=== PATIENT | female | born 1985 | race American Indian/Alaskan Native ===

== ENCOUNTER 2016-05-28 10:40 | Outpatient (CLI) | payer MEDICAID ==
[2016-05-28] MEDS ORDERED: LACTATED RINGERS 500 ML IV ONE (11:17)
[2016-05-28 11:34] VITALS: BP 109/55
[2016-05-28] MEDS ORDERED: LACTATED RINGERS 1,000 ML ONE (12:10)
[2016-05-28] MEDS ORDERED: ZOFRAN IV ONE (13:13)
== END 2016-05-28 14:16 | disposition home or self-care (01) ==
LOC: TRG 10:40
PROVIDERS: ATTEND Obstetrics & Gynecology
DX: O47.03 False labor before 37 completed weeks of gestation, third trimester (principal); Z3A.36 36 weeks gestation of pregnancy
CPT/HCPCS: 59025; 96360; 96374; J2405; J7120

== ENCOUNTER 2016-06-09 14:05 | Inpatient (IN) | payer MEDICAID ==
[2016-06-09] MEDS ORDERED: NORCO 5/325 PO PRN (14:17)
[2016-06-09] MEDS ORDERED: COLACE PO PRN (16:55)
[2016-06-09] MEDS ORDERED: ALUM-MAG HYDROX-SIMETH 200-200-20MG/5ML PO PRN (16:55)
[2016-06-09] MEDS ORDERED: TYLENOL PO PRN (16:55)
[2016-06-09] MEDS ORDERED: SUBLIMAZE IV PRN (16:58)
--- NOTE | 2016-06-09 17:29 | History and Physical Report ---
History of Present Illness Date of examination: 06/09/16 Chief complaint: Presented to office today with c/o pain in right flank over the last few days but increasingly worse. Past History Past Medical History: asthma, other (Hx of Dilated Right Renal Hilum ) Past Surgical History: other (ear surgery - keloid removal) [employer] History: abnormal PAP smear (+ HPV) Family/Genetic History: hypertension, stroke Social history: no significant social history - Obstetrical History Expected Date of Delivery: 06/25/16 Actual Gestation: 37 Week(s) 5 Day(s) : 5 Para: 4 Hx # Term Pregnancies: 2 Number of Pregnancies: 2 Number of Living Children: 4 Medications and Allergies Allergies Allergy/AdvReac Type Severity Reaction Status Date / Time Penicillins Allergy Vomiting Verified 02/26/14 01:13 Home Medications Medication Instructions Recorded Confirmed Last Taken Type Benzonatate [Tessalon Perle] 100 mg PO TID #30 capsule 02/26/14 Unknown Rx Naproxen [Naprosyn TAB] 500 mg PO BID #30 tablet 02/26/14 Unknown Rx Prednisone [Prednisone 10 mg 10 mg PO .TAPER #1 tab.ds.pk 02/26/14 Unknown Rx (6-Day Pack, 21 Tabs)] Promethazine /Codeine 5 ml PO Q6H PRN #1 udc 02/26/14 Unknown Rx [Phenergan/Codeine 6.25-10 mg/5 ml] Acetaminophen [Tylenol] 500 mg PO Q6HR #30 tablet 03/21/16 Unknown Rx Active Meds: Active Medications Acetaminophen (Tylenol) 650 mg PO Q4H PRN PRN Reason: Pain MILD(1-3)/Fever >100.5/SANCHEZ Acetaminophen/Hydrocodone Bitart ([place] 5/325) 2 each PO Q4H PRN PRN Reason: Pain, Moderate (4-6) Al Hydrox/Mg Hydrox/Simethicone (Alum-Mag Hydrox-Simeth [phone]/5ml) 30 ml PO Q6H PRN PRN Reason: Indigestion Docusate Sodium (Colace) 100 mg PO Q12H PRN PRN Reason: Constipation Fentanyl (Sublimaze) 100 mcg IV ONCE PRN PRN Reason: Pain Lactated Ringer's (Lactated Ringers) 1,000 mls @ 125 mls/hr IV DIRECT PRANAV Multivitamins/Iron/Calcium ( Vitamin) 1 each PO QDAY PRANAV Review of Systems Genitourinary: other (right flank pain) - Vital Signs Vital signs: Vital Signs Pulse BP 83 105/67 06/09/16 15:01 06/09/16 15:01 Temp Pulse Resp BP Pulse Ox 83 105/67 06/09/16 15:01 06/09/16 15:01 - Physical Exam Breasts: Positive: deferred Cardiovascular: Regular rate Lungs: Positive: Clear to auscultation Abdomen: Positive: soft Genitourinary (Female): Positive: other (flank pain) Vulva: both: normal Uterus: Positive: enlarged Anus/Rectum: Positive: normal perianal skin Extremities: Positive: normal Deep Tendon Reflex Grade: Normal +2 - Obstetrical FHR: category 1 Uterine Contraction Monitor Mode: External Cervical Dilatation: 2 Cervical Effacement Percentage: 70 station: -1 Uterine Contraction Pattern: Irregular Uterine Contraction Intensity: Mild Results All other labs normal. Assessment and Plan A: 37 + weeks gestation Acute Right flank pain P: Urine culture, CBC, CMP Abdominal U/S Urology consult. Dr. Simms aware
[2016-06-09] MEDS: LACTATED RINGERS 1,000 ML IV SCH ×2 (17:31→19:19)
[2016-06-09 18:17] LABS: Basophils % (Auto) 0.2 % (0.0-1.8); Eosinophils % (Auto) 1.8 % (0.0-4.3); Mean Corpuscular HGB Conc 32 % (30-34); Mean Corpuscular Hemoglobin 30 pg (28-32); Mean Corpuscular Volume 91 fl (79-97); Platelet Count 220 K/mm3 (140-440); Red Blood Count 3.72 M/mm3 (3.65-5.03); Red Cell Distribution Width 13.4 % (13.2-15.2); White Blood Count 10.8 K/mm3 (4.5-11.0)
[2016-06-09 18:34] LABS: Alanine Aminotransferase 20 units/L (7-56); Albumin 3.6 g/dL (3.9-5); Albumin/Globulin Ratio 1.3 %; Alkaline Phosphatase 161 units/L (35-129); Anion Gap 17 mmol/L; Bilirubin,Total 0.2 mg/dL (0.1-1.2); Blood Urea Nitrogen 7 mg/dL (7-17); Calcium 8.8 mg/dL (8.4-10.2); Carbon Dioxide 23 mmol/L (22-30); Glucose 75 mg/dL (65-100); Sodium 136 mmol/L (137-145); Total Protein 6.4 g/dL (6.3-8.2)
[2016-06-09] MEDS: SUBLIMAZE IV PRN (20:24)
--- NOTE | 2016-06-10 00:49 | Ultrasound Report ---
FINAL REPORT PROCEDURE: US RENAL BILAT TECHNIQUE: Real-time sonography in multiple planes of the kidneys, ureters and urinary bladder was performed with image documentation. CPT 96945 HISTORY: extreme right flank pain COMPARISON: No prior studies are available for comparison. FINDINGS: RIGHT kidney: There is significant right hydronephrosis with dilated proximal right ureter. The right renal size is increased. Length: 15.1 cm. LEFT kidney: Normal echotexture. No focal renal mass, calculus, or hydronephrosis. Length: 10.4cm. Bladder: Normal. IMPRESSION: Enlarged right kidney with significant right hydronephrosis and proximal right hydroureter. Further evaluation of the right kidney and collecting system should be entertained this patient. Further imaging could include CT of the abdomen with and without contrast..
[2016-06-10] MEDS: SUBLIMAZE IV PRN ×3 (01:58→09:40)
[2016-06-10] MEDS: LACTATED RINGERS 1,000 ML IV SCH ×2 (03:10→11:09)
--- NOTE | 2016-06-10 07:28 | Progress Note ---
Assessment and Plan A: IUP at 37+6 wks with R hydronephrpsis -Cat 1 tracing P: -Continue nothing by mouth status -Await Urology consultation - Patient Problems (1) 37 weeks gestation of Current Visit: Yes Status: Acute (2) Hydronephrosis determined by ultrasound Current Visit: Yes Status: Acute Subjective - Subjective Date of service: 06/10/16 Principal diagnosis: IUP at 37+6 wks, R hydronephrosis Interval history: Patient seen and examined, stable. She still has right flank pain requiring narcotic medication, no fever overnight. White count normal No contractions, no vaginal bleeding, no loss of fluid plus movement Patient reports: new complaints, movement normal, no loss of fluid, no vaginal bleeding, no contractions Objective - Vital Signs Vital Signs: Vital Signs - 12hr 06/09/16 06/09/16 06/09/16 20:00 20:02 20:24 Temperature 98.0 F Pulse Rate 80 Respiratory 16 16 Rate Blood Pressure 114/72 O2 Sat by Pulse Oximetry 06/09/16 06/09/16 06/09/16 21:10 21:14 21:18 Temperature Pulse Rate 91 H 73 79 Respiratory Rate Blood Pressure O2 Sat by Pulse 98 97 91 Oximetry 06/09/16 06/09/16 06/09/16 21:20 21:30 21:35 Temperature Pulse Rate 83 89 63 Respiratory Rate Blood Pressure O2 Sat by Pulse 100 99 98 Oximetry 06/09/16 06/09/16 06/09/16 21:40 21:44 21:50 Temperature Pulse Rate 80 86 77 Respiratory Rate Blood Pressure O2 Sat by Pulse 100 98 98 Oximetry 06/09/16 06/09/16 06/09/16 21:55 22:00 22:05 Temperature Pulse Rate 69 75 73 Respiratory Rate Blood Pressure O2 Sat by Pulse 98 99 98 Oximetry 06/09/16 06/09/16 06/09/16 22:10 22:15 22:20 Temperature Pulse Rate 75 86 62 Respiratory Rate Blood Pressure O2 Sat by Pulse 98 99 98 Oximetry 06/09/16 06/09/16 06/09/16 22:25 22:30 23:47 Temperature Pulse Rate 67 73 72 Respiratory Rate Blood Pressure 101/56 O2 Sat by Pulse 98 100 98 Oximetry 03/21/17 03/21/17 03/21/17 23:52 23:54 23:57 Temperature 97.8 F Pulse Rate 65 79 Respiratory 16 Rate Blood Pressure O2 Sat by Pulse 97 97 Oximetry 06/10/16 06/10/16 06/10/16 00:02 00:07 00:12 Temperature Pulse Rate 83 71 79 Respiratory Rate Blood Pressure O2 Sat by Pulse 98 98 98 Oximetry 06/10/16 06/10/16 06/10/16 00:17 00:22 00:27 Temperature Pulse Rate 84 72 83 Respiratory Rate Blood Pressure O2 Sat by Pulse 99 98 98 Oximetry 06/10/16 06/10/16 06/10/16 00:32 00:37 00:42 Temperature Pulse Rate 74 71 79 Respiratory Rate Blood Pressure O2 Sat by Pulse 97 97 98 Oximetry 06/10/16 06/10/16 06/10/16 00:47 00:52 00:57 Temperature Pulse Rate 70 70 74 Respiratory Rate Blood Pressure O2 Sat by Pulse 98 97 97 Oximetry 06/10/16 06/10/16 06/10/16 01:02 01:07 04:53 Temperature Pulse Rate 68 83 82 Respiratory Rate Blood Pressure 104/55 O2 Sat by Pulse 97 98 Oximetry 06/10/16 06/10/16 05:07 07:00 Temperature 97.8 F Pulse Rate Respiratory 16 18 Rate Blood Pressure O2 Sat by Pulse Oximetry - Exam Abdomen: Present: tenderness (right flank tenderness). Absent: normal appearance, soft, distention, guarding, rigidity Uterus: Absent: tenderness FHR: category 1 - Labs Labs: Abnormal Labs 06/09/16 06/09/16 Unknown Unknown [place] % (Auto) 8.3 H [place] # 0.9 H Sodium 136 L Creatinine 0.5 L Alkaline Phosphatase 161 H Albumin 3.6 L Laboratory Results - last 24 hr 06/09/16 06/09/16 Unknown Unknown WBC 10.8 RBC 3.72 Hgb 11.0 Hct 34.0 MCV 91 MCH 30 MCHC 32 RDW 13.4 Plt Count 220 Lymph % (Auto) 20.9 [place] % (Auto) 8.3 H Eos % (Auto) 1.8 Baso % (Auto) 0.2 Lymph # 2.2 [place] # 0.9 H Eos # 0.2 Baso # 0.0 Seg Neutrophils % 68.8 Seg Neutrophils # 7.4 Sodium 136 L Potassium 4.0 Chloride 100.0 Carbon Dioxide 23 Anion Gap 17 BUN 7 Creatinine 0.5 L Estimated GFR > 60 BUN/Creatinine Ratio 14.00 Glucose 75 Calcium 8.8 Total Bilirubin 0.2 AST 21 ALT 20 Alkaline Phosphatase 161 H Total Protein 6.4 Albumin 3.6 L Albumin/Globulin Ratio 1.3
--- NOTE | 2016-06-10 07:39 | Admit Criteria Form ---
Admission Criteria Documentation: RENAL COLIC AND KIDNEY STONES Clinical Indications for Admission to Inpatient Care ( Place 'X' for any and all applicable criteria): Admission is indicated for ANY ONE of the following (1)(2)(3)(4): [X]I. Inpatient admission required rather than observation care (Also use Renal Colic and Kidney Stones: Observation Care Criteria as appropriate) because of ANY ONE of the following: [X]a) Severe pain requiring acute inpatient management [ ]b) Urinary tract infection identified [ ]c) Vomiting that is severe or persistent [ ]d) IV fluid required rather than oral rehydration to replace significant ongoing (eg, for greater than 24 hours) losses (greater than 200 mL/hr or 3 L/m2 per day) [ ]e) Percutaneous or open drainage (eg, abscess, biliary tract) procedures [ ]f) Other condition, treatment or monitoring requiring inpatient admission [ ]II. Impending acute renal failure [ ]III. Bilateral obstruction [X]IV. Single kidney with obstruction [ ]V. Transplanted kidney with obstruction [ ]. Possible open surgical procedure needed (eg, pyonephrosis, stone removal not amendable to other means) [ ]VII. Hemodynamic instability Extended stay beyond goal length of stay may be needed for(2)(3)(31): [ ]a) Failed initial stone removal (32) [ ]b) Pyonephrosis [ ]c) Obstructive uropathy with urinary tract infection [ ]d) Procedure complications [ ]e) Comorbidities (22) The original [facility] content created by [employer] has been revised. The portions of the content which have been revised are identified through the use of italic text or in bold, and [facility] has neither reviewed nor approved the modified material. All other unmodified content is copyright [facility]. Please see references footnoted in the original [facility] edition 2016 Admission Criteria Met: Yes
[2016-06-10 08:38] VITALS: BP 99/60
[2016-06-10] MEDS ORDERED: PRENATAL VITAMIN PO SCH (10:00)
[2016-06-10] MEDS ORDERED: MORPHINE IV PRN ×2 (10:01→10:05)
--- NOTE | 2016-06-10 12:00 | Event Note ---
Date: 06/10/[address] Mehta of urology who has seen the patient. Discussed and reviewed options with the patient. She was given 3 options #1 nephrostomy tube #2 stent platelets placement and #3 conservative care until delivery. Urology states there is a spot open for surgery this afternoon if she desires. Discussed issues related with all above. Advised she could be induced at 39 weeks if she can tolerate ~ 1 week w/out narcotic medication. If she desires surgical intervention, then she needs to decide as soon as possible so a slot can be possible for her for this afternoon in the OR. If patient does decide on conservative care, she'll be discharged home to follow-up in clinic and induction will be scheduled.
--- NOTE | 2016-06-10 12:20 | Discharge Summary ---
Providers - Providers Date of Admission: 06/10/16 11:22 Date of discharge: 06/10/16 Attending physician: GOSIA HOLMAN MD 06/09/16 17:06 Consult to Physician [CONS] Urgent Consulting Provider: KATYA GONSALVES Reason For Exam: 37 weeks with hx of dilated kidney, pain Place consult to:: [facility] Notified:: yes Phone number called:: [phone] Was contact made?: Yes If yes, spoke with:: OFFICE Time called:: 09:05 Comment:: SPOKE WITH OFFICE THAT IS IN SURGERY. WILL CONTACT HIM 06/10/16 07:29 Consult to Physician [CONS] Urgent Consulting Provider: FARHAD RANGEL Reason For Exam: R hydronephrosis at [address] consult to:: Yes Notified:: yes Primary care physician: GOSIA HOLMAN MD Hospitalization Discharge diagnosis: other (IUP at 37+6 wks with right hydronephrosis and Ureter ) Hospital course: 40-year-old at 37+5 was admitted from the office with complaint of right flank pain over the last few days but increasingly worse, she is a [employer] patient. Hx of Dilated Right Renal Hilum During admission, patient remained afebrile and her white count was within normal. Renal ultrasound obtained shows enlarged right kidney with significant right hydronephrosis and proximal right hydroureter. Further evaluation of the right kidney and collecting system should be entertained in this patient. Other imaging could Include CT of the abdomen abdomen with and without contrast She was seen by Dr. Schaffer of urology. Discussed and reviewed options with the patient. She was given 3 options #1 nephrostomy tube #2 stent placement or #3 conservative care until delivery. Urology informed the patient that there was a spot for surgery this afternoon if she desires. I discussed issues related with all above. Advised she could be induced at 39 weeks if she can tolerate ~ 1 week w/out narcotic medication. If she desires surgical intervention, then she needs to decide as soon as possible so a slot can be held open for her for this afternoon in the OR. After discussing with the father of the baby, patient has decided on conservative care. Discharge patient at this time should be scheduled for induction at 39 weeks Condition at discharge: Good Disposition: DISCHARGED TO HOME OR SELFCARE - Discharge Diagnoses (1) 37 weeks gestation of Status: Acute (2) Hydronephrosis determined by ultrasound Status: Acute Plan - Provider Discharge Summary Activity: no strenuous exercise Diet: routine Instructions: other (return to the hospital for induction at 39 weeks) Additional instructions: [] Smoking cessation referral if applicable(refer to patient education folder for contact #) [] Refer to [facility] Booklet Call your doctor immediately for: * Fever > 100.5 * Heavy vaginal bleeding ( >1 pad per hour) * Severe persistent headache * Shortness of breath * Reddened, hot, painful area to leg or breast * Drainage or odor from incision. * Keep incision clean and dry at all times and follow doctor's instructions regarding bathing/showering - Follow up plan Follow up: GOSIA KAPLAN MD [Primary Care Provider] - 3 Days
--- NOTE | 2016-06-10 12:35 | Progress Note ---
Assessment and Plan pt here wih the father both refused surgery explaine d min radiation exposue refused she never followed up aware of risk to her kidney dictated Subjective Date of service: 06/10/16 Principal diagnosis: IUP at 37+6 wks, R hydronephrosis Objective - Constitutional Vitals: Vital Signs - 12hr 06/10/16 06/10/16 06/10/16 00:37 00:42 00:47 Temperature Pulse Rate 71 79 70 Pulse Rate [ From Monitor] Respiratory Rate Blood Pressure Blood Pressure [Left Arm] O2 Sat by Pulse 97 98 98 Oximetry 06/10/16 06/10/16 06/10/16 00:52 00:57 01:02 Temperature Pulse Rate 70 74 68 Pulse Rate [ From Monitor] Respiratory Rate Blood Pressure Blood Pressure [Left Arm] O2 Sat by Pulse 97 97 97 Oximetry 06/10/16 06/10/16 06/10/16 01:07 04:53 05:07 Temperature 97.8 F Pulse Rate 83 82 Pulse Rate [ From Monitor] Respiratory 16 Rate Blood Pressure 104/55 Blood Pressure [Left Arm] O2 Sat by Pulse 98 Oximetry 06/10/16 06/10/16 06/10/16 07:00 08:20 08:25 Temperature Pulse Rate 95 H 76 Pulse Rate [ From Monitor] Respiratory 18 Rate Blood Pressure Blood Pressure [Left Arm] O2 Sat by Pulse 98 98 Oximetry 06/10/16 06/10/16 06/10/16 08:30 08:35 08:36 Temperature 96.7 F L Pulse Rate 77 64 Pulse Rate [ 88 From Monitor] Respiratory 20 Rate Blood Pressure 99/60 Blood Pressure 99/60 [Left Arm] O2 Sat by Pulse 99 98 Oximetry 06/10/16 09:40 Temperature Pulse Rate Pulse Rate [ From Monitor] Respiratory 20 Rate Blood Pressure Blood Pressure [Left Arm] O2 Sat by Pulse Oximetry General appearance: Present: no acute distress - Labs CBC & Chem 7: 06/09/16 Unknown 06/09/16 Unknown Labs: Abnormal lab results 06/09/16 06/09/16 Range/Units Unknown Unknown [place] % (Auto) 8.3 H (0.0-7.3) % [place] # 0.9 H (0.0-0.8) K/mm3 Sodium 136 L (137-145) mmol/L Creatinine 0.5 L (0.7-1.2) mg/dL Alkaline Phosphatase 161 H (35-129) units/L Albumin 3.6 L (3.9-5) g/dL
--- NOTE | 2016-06-10 22:29 | Consultation ---
HISTORY OF PRESENT ILLNESS: The patient is a patient of mine who has been poorly compliant, did not follow up. She has had intermittent right flank pain and hydronephrosis. She is about 38 weeks. She came in with severe pain yesterday and moderate to severe right hydronephrosis. Dr. Munoz, my partner saw her this morning and then I followed up with her at about noon. The father of the child was here as well. She is still having some discomfort. No fevers or chills. We offered to place a stent multiple times. She refused. She is having the IV removed. Her white count is 10.8. PAST MEDICAL HISTORY: As mentioned above, . She has had 4 children before. SOCIAL HISTORY: Negative. FAMILY HISTORY: vascular disease. ALLERGIES: Penicillin. REVIEW OF SYSTEMS: Right flank pain. PHYSICAL EXAMINATION: She is in no distress with some discomfort. She is clearly . She has no shortness of breath. IMPRESSION: Significantly enlarged right kidney with hydronephrosis. I suggested a stent if her pain continues. She wants to go home. The father of the child refuses for her to have any radiation exposure. She may need a little bit of fluoroscopy. PLAN: Hopefully, she will deliver soon and this will resolve on its own. If she gets fever, chills, vomiting, or the delivery delayed, I recommend the stent, especially if she continues to have pain. JOB# [id number] NILSON/SERAFIN
== END 2016-06-10 13:15 | disposition home or self-care (01) | DRG 781 ==
LOC: TRG 14:05 → LD 14:06 → TRG 17:11 → LD 17:42 → OBSVTOIN 06-10 11:22
PROVIDERS: ADMIT Obstetrics & Gynecology; ATTEND Obstetrics & Gynecology
DX: O26.833 Pregnancy related renal disease, third trimester (principal); N13.30 Unspecified hydronephrosis; O99.513 Diseases of the respiratory system complicating pregnancy, third trimester; J45.909 Unspecified asthma, uncomplicated; Z88.0 Allergy status to penicillin; Z3A.37 37 weeks gestation of pregnancy; Z82.3 Family history of stroke; Z82.49 Family history of ischemic heart disease and other diseases of the circulatory system
CPT/HCPCS: 36415; 76770; 80053; 85025; 87086; G0378; J3010; J7120

== ENCOUNTER 2017-08-23 12:01 | Outpatient (CLI) | payer MEDICAID ==
[2017-08-23] MEDS ORDERED: LACTATED RINGERS 1,000 ML IV ONE (12:08)
[2017-08-23] MEDS ORDERED: LACTATED RINGERS 1,000 ML ONE (12:11)
[2017-08-23 12:20] VITALS: BP 113/70
[2017-08-23 12:27] LABS: Bilirubin,Urine NEG (Negative); Blood,Urine NEG (Negative); Color,Urine Amber (Yellow); Mucus,Urine 3+ /HPF; Urobilinogen,Urine < 2.0 mg/dL (<2.0)
--- NOTE | 2017-08-23 13:46 | Ultrasound Report ---
ULTRASOUND RENAL BILATERAL HISTORY: Right flank pain, history of hydronephrosis. TECHNIQUE: transabdominal ultrasound with color Doppler interrogation. FINDINGS: Compared to 06/09/16. There is mild to moderate right hydronephrosis but this has decreased by at least 50% since the previous exam. No left hydronephrosis. The kidneys are normal size, contour and and echotexture otherwise. No evidence for cystic disease, mass or shadowing calculus. The bladder is empty. IMPRESSION: Mild to moderate right hydronephrosis. See above.
== END 2017-08-23 14:55 | disposition home or self-care (01) ==
LOC: TRG 12:01
PROVIDERS: ATTEND Obstetrics & Gynecology
DX: O47.02 False labor before 37 completed weeks of gestation, second trimester (principal); Z3A.30 30 weeks gestation of pregnancy
CPT/HCPCS: 59025; 76770; 81001; J7120